=== PATIENT | male | born 1975 | race Caucasian/White ===

== ENCOUNTER 2016-07-08 18:42 | Emergency (ER) | payer OTHER ==
[2016-07-08 20:13] LABS: HEMOGLOBIN 14.1 gm/dl (14.0-17.5); RED BLOOD COUNT 4.71 M/UL (4.20-5.50); WHITE BLOOD COUNT 7.9 K/UL (4.5-11.0)
[2016-07-08 20:50] LABS: BUN/CREATININE RATIO 11 (0-10)
== END 2016-07-09 03:37 | disposition home or self-care (01) ==
LOC: ER1 18:42
PROVIDERS: Physician Assistant
DX: J06.9 Acute upper respiratory infection, unspecified (principal); E11.65 Type 2 diabetes mellitus with hyperglycemia; B34.9 Viral infection, unspecified; R07.1 Chest pain on breathing; I10 Essential (primary) hypertension; Z79.84 Long term (current) use of oral hypoglycemic drugs; Z79.899 Other long term (current) drug therapy
CPT/HCPCS: 36415; 71020; 80053; 82009; 82550; 82553; 82962; 83874; 84484; 85025; 85379; 93005; 96360; 96361; 96372; 99285; J1815; J7030

== ENCOUNTER 2016-08-01 16:54 | Emergency (ER) | payer OTHER ==
[2016-08-01 21:04] LABS: HEMOGLOBIN 14.9 gm/dl (14.0-17.5); RED BLOOD COUNT 5.05 M/UL (4.20-5.50); WHITE BLOOD COUNT 7.6 K/UL (4.5-11.0)
[2016-08-01 21:21] LABS: BUN/CREATININE RATIO 9 (0-10)
== END 2016-08-01 22:43 | disposition home or self-care (01) ==
LOC: ER1 16:54
PROVIDERS: Specialist/Technologist Athletic Trainer
DX: J20.9 Acute bronchitis, unspecified (principal); E11.65 Type 2 diabetes mellitus with hyperglycemia; I10 Essential (primary) hypertension
CPT/HCPCS: 36415; 71010; 80053; 82009; 82800; 82962; 85025; 87081; 87880; 96360; 99283

== ENCOUNTER 2020-11-27 09:17 | Emergency (ER) | payer OTHER ==
[~2020-11-27] VITALS: Ht 172.7 cm; Wt 100.2 kg
[~2020-11-27 09:17] MED LIST: ZOFRAN ODT 4 MG4 MG PO
[2020-11-27 11:12] LABS: HEMOGLOBIN 16.1 gm/dl (14.0-17.5); RED BLOOD COUNT 5.32 M/UL (4.20-5.50); WHITE BLOOD COUNT 3.8 K/UL (4.5-11.0)
[2020-11-27 11:34] LABS: BUN/CREATININE RATIO 13 (0-10)
== END 2020-11-27 17:05 | disposition home or self-care (01) ==
LOC: ER1 09:17
PROVIDERS: Emergency Medicine
DX: Z23 Encounter for immunization (principal); U07.1 COVID-19; E11.9 Type 2 diabetes mellitus without complications
CPT/HCPCS: 0240U; 71045; 80053; 85025; 85379; 99284; M0243

== ENCOUNTER → 2021-04-04 | Outpatient (CLI) | payer OTHER ==
[2021-04-04 12:17] LABS: HEMOGLOBIN 17.6 gm/dl (14.0-17.5); RED BLOOD COUNT 5.9 M/UL (4.20-5.50); WHITE BLOOD COUNT 5.9 K/UL (4.5-11.0)
[2021-04-04 12:34] LABS: BUN/CREATININE RATIO 16 (0-10)
== END ==
LOC: LAB 10:27
PROVIDERS: Nurse Practitioner Family
DX: E78.5 Hyperlipidemia, unspecified (principal)
CPT/HCPCS: 36415; 80053; 80061; 85025

== ENCOUNTER 2021-06-21 16:57 | Emergency (ER) | payer OTHER | END 2021-06-21 18:12 | disposition home or self-care (01) | LOC: ER1 16:57 | DX: U07.1 COVID-19 (principal); E78.5 Hyperlipidemia, unspecified; I10 Essential (primary) hypertension; E11.9 Type 2 diabetes mellitus without complications | CPT/HCPCS: 99283 ==

== ENCOUNTER 2021-06-22 22:46 | Emergency (ER) | payer OTHER ==
[2021-06-22 23:21] LABS: HEMOGLOBIN 15.8 gm/dl (14.0-17.5); RED BLOOD COUNT 5.47 M/UL (4.20-5.50); WHITE BLOOD COUNT 4.3 K/UL (4.5-11.0)
[2021-06-23 00:20] LABS: BUN/CREATININE RATIO 16 (0-10)
== END 2021-06-23 05:18 | disposition home or self-care (01) ==
LOC: ER1 22:46
PROVIDERS: Physician Assistant
DX: R07.89 Other chest pain (principal); R10.9 Unspecified abdominal pain; E11.65 Type 2 diabetes mellitus with hyperglycemia; I10 Essential (primary) hypertension; E78.5 Hyperlipidemia, unspecified; V49.9XXA Car occupant (driver) (passenger) injured in unspecified traffic accident, initial encounter; W22.10XA Striking against or struck by unspecified automobile airbag, initial encounter; Y92.410 Unspecified street and highway as the place of occurrence of the external cause
CPT/HCPCS: 71260; 80053; 82550; 82553; 82962; 83874; 84484; 85025; 93005; 96374; 99285; Q9967

== ENCOUNTER 2021-07-19 23:20 | Emergency (ER) | payer OTHER ==
[2021-07-20 00:16] LABS: HEMOGLOBIN 14.3 gm/dl (14.0-17.5); RED BLOOD COUNT 4.97 M/UL (4.20-5.50); WHITE BLOOD COUNT 6.7 K/UL (4.5-11.0)
[2021-07-20 00:18] LABS: BUN/CREATININE RATIO 15 (0-10)
[2021-07-20] MEDS ORDERED: HUMULIN N100 UNIT/1 SC (01:26)
== END 2021-07-20 01:42 | disposition home or self-care (01) ==
LOC: ER1 23:20
PROVIDERS: Physician Assistant
DX: R07.9 Chest pain, unspecified (principal); E10.65 Type 1 diabetes mellitus with hyperglycemia
CPT/HCPCS: 71045; 80053; 81001; 82550; 82553; 82962; 84484; 85025; 96374; 99285; J7030